=== PATIENT | female | born 1965 | race Caucasian/White ===

== ENCOUNTER 2023-04-09 15:40 | Emergency (ER) | payer OTHER ==
[2023-04-09 16:20] VITALS: RESP 16; BMI 37.8
[2023-04-09] MEDS ORDERED: ONDANSETRON *ODT* 4 MG TABLET SL ONE (18:55)
[2023-04-09] MEDS ORDERED: ONDANSETRON *ODT* 4 MG TABLET ONE (19:07)
[2023-04-09 19:20] VITALS: BP 133/56; PULSE 88; TEMP 98.2
== END 2023-04-09 19:50 | disposition home or self-care (01) ==
LOC: JER 15:40
DX: R05.9 Cough, unspecified (principal); R09.81 Nasal congestion; R09.82 Postnasal drip; R11.10 Vomiting, unspecified; A08.4 Viral intestinal infection, unspecified; U07.1 COVID-19
CPT/HCPCS: 0241U-QW; 71046-TC-FY; 99284-25

== ENCOUNTER 2024-07-08 22:24 | Emergency (ER) | payer OTHER ==
[2024-07-08 22:38] VITALS: BP 122/60; PULSE 90; RESP 18; TEMP 98.7; BMI 36.8
[2024-07-08] MEDS: ACETAMINOPHEN 1000 MG/100 ML BAG IVPB ONE ×2 (22:54→23:39)
[2024-07-08] MEDS ORDERED: ACETAMINOPHEN INJECTION 100 ML ONE (23:28)
[2024-07-08] MEDS ORDERED: ONDANSETRON 4 MG/2 ML VIAL ONE (23:29)
[2024-07-08 23:32] LABS: ABSOLUTE IMMATURE GRANULOCYTES 0.03 x10^3/uL (0.0-0.031); BASOPHILS # 0.04 x10^3/uL (0.01-0.08); EOSINOPHIL % 1.8 % (0.7-5.8); EOSINOPHILS # 0.16 x10^3/uL (0.04-0.36); HEMOGLOBIN 13.8 g/dL (11.2-15.7); MCHC 32.9 g/dl (32.2-35.5); MEAN CELL VOLUME 91.1 fl (79.4-94.8); MEAN PLT VOLUME 9.6 fl (9.4-12.3); MONOCYTE # 0.75 x10^3/uL (0.24-0.86); MONOCYTE % 8.5 % (4.7-12.5); PLATELET COUNT 379 x10^3/uL (182-369); RDW 13.4 % (12.3-16.6)
[2024-07-08] MEDS: LACTATED RINGERS SOLUTION 1000 ML INFUS.BAG IV ONE (23:39)
[2024-07-08] MEDS: ACETAMINOPHEN 500 MG TABLET (FP) PO ONE (23:39)
[2024-07-08] MEDS: ONDANSETRON 4 MG/2 ML VIAL IVPUSH ONE (23:39)
[2024-07-08 23:41] LABS: EPI CELLS >36 /uL (0-25.1); HYALINE CASTS 2 /uL (0-3.1); PH,URINE 5.5 (5.0-8.0); URINE APPEARANCE CLOUDY; URINE BACTERIA 603 /uL (0-1359); URINE BILIRUBIN NEGATIVE (NEGATIVE); URINE COLOR YELLOW; URINE GLUCOSE (UA) NEGATIVE (NEGATIVE); URINE KETONE 4+ (NEGATIVE); URINE LEUK ESTERASE NEGATIVE (NEGATIVE); URINE NITRITE NEGATIVE (NEGATIVE); URINE PROTEIN 2+ (NEGATIVE); URINE RBC 12 /uL (0-23.9); URINE WBC 30 /uL (0-25.8)
[2024-07-09 00:51] LABS: POTASSIUM 3.3 mmol/L (3.5-5.1)
[2024-07-09 00:53] LABS: ALBUMIN 4.1 g/dl (3.4-5.0); BLOOD UREA NITROGEN 19.1 mg/dL (7-18); CALCIUM 9.4 mg/dL (8.5-10.1); MAGNESIUM 2.2 mg/dL (1.8-2.4)
[2024-07-09 00:56] LABS: CREATININE 0.8 mg/dL (0.55-1.3)
[2024-07-09 00:58] LABS: BILIRUBIN,TOTAL 0.4 mg/dL (0.2-1); TOT PROT 8.1 g/dl (6.4-8.2)
[2024-07-09 01:13] LABS: HCV DIAGNOSTIC IN-HOUSE W/RFLX NON-REACTIVE (NONREACTIVE)
[2024-07-09 08:29] LABS: HIV INTERPRETATION NEGATIVE (NEGATIVE)
== END 2024-07-09 01:51 | disposition home or self-care (01) ==
LOC: JER 22:24
PROC: 3E033NZ Introduction of Analgesics, Hypnotics, Sedatives into Peripheral Vein, Percutaneous Approach (ICD-10-PCS; principal; 2024-07-08)
PROC: 3E033GC Introduction of Other Therapeutic Substance into Peripheral Vein, Percutaneous Approach (ICD-10-PCS; 2024-07-08)
DX: R11.2 Nausea with vomiting, unspecified (principal); R53.1 Weakness; R09.81 Nasal congestion; R05.9 Cough, unspecified; R30.0 Dysuria; R07.9 Chest pain, unspecified
CPT/HCPCS: 0241U-QW; 36415; 71046-TC-FY; 80053; 81003; 83735; 84484; 85025; 86803; 87077; 87086; 87389; 93005; 93010; 99285-25; J0131